=== PATIENT | female | born 1955 | race Two or more races ===

== ENCOUNTER 2022-05-22 11:45 | Inpatient (IN) | payer OTHER ==
[~2022-05-22] VITALS: Ht 165.1 cm; Wt 86.2 kg
[2022-05-22] MEDS ORDERED: LOSARTAN-HCTZ1 EACH PO (14:25)
[2022-05-22] MEDS ORDERED: SIMVAS PO (14:25)
[2022-05-22] MEDS ORDERED: TIROSINT137 MCG PO (14:25)
[2022-05-22] MEDS ORDERED: VITAMIN D PO (14:26)
[2022-05-26] MEDS ORDERED: SIMVASTATIN20 MG (08:00)
[2022-05-26] MEDS ORDERED: VITAMIN D325 MCG (08:00)
[2022-05-28] MEDS ORDERED: IBU800 MG PO (08:01)
== END 2022-05-28 10:40 | disposition home or self-care (01) | DRG 743 ==
LOC: O/R 05-26 06:36 → OB/GYN 05-26 06:36
PROVIDERS: ADMIT Obstetrics & Gynecology Gynecology; ATTEND Obstetrics & Gynecology Gynecology
PROC: 0UT70ZZ Resection of Bilateral Fallopian Tubes, Open Approach (ICD-10-PCS; 2022-05-26)
PROC: 0UT20ZZ Resection of Bilateral Ovaries, Open Approach (ICD-10-PCS; 2022-05-26)
PROC: 0UT90ZZ Resection of Uterus, Open Approach (ICD-10-PCS; principal; 2022-05-26 09:30)
DX: N84.0 Polyp of corpus uteri (principal); D27.1 Benign neoplasm of left ovary; N73.6 Female pelvic peritoneal adhesions (postinfective); Z20.822 Contact with and (suspected) exposure to COVID-19